=== PATIENT | male | born 1985 | race Two or more races ===

== ENCOUNTER 2020-06-26 06:57 | Emergency (ER) | payer SELFPAY ==
[~2020-06-26] VITALS: Ht 175.3 cm; Wt 104.3 kg
--- NOTE | 2020-06-26 07:02 | NUR ---
ED Nurse Note: Pt was brought in by ambulance from home d/t sore throat that has started x 1 hr ago. Pt is AOx4, calm and cooperative, pt denies having any chills, cough, weakness nor loss sense of taste or smell. Pt's VSS, on RA, afebrile on triage.
[2020-06-26 07:07] VITALS: BP 134/76
--- NOTE | 2020-06-26 07:10 | NUR ---
ED Nurse Note: Pt denies difficulty of breathing but complains of difficulty swallowing. ERMD at bedside.
[2020-06-26] MEDS ORDERED: Lidocaine 2% Visc 15ml soln ORAL ONE (07:15)
--- NOTE | 2020-06-26 07:18 | Emergency Room Report ---
History of Present Illness General Chief Complaint: Sore Throat Source: Patient, EMS Present Illness HPI Patient woke up with a sore throat. He feels some swelling. This caused him to gag this morning. He vomited with this. He called paramedics because he feels that there is swelling. It is painful to swallow. He denies any fevers or chills. There is no other upper respiratory symptomatology. Patient denies being in contact with other COVID-19 patients or people with upper respiratory symptoms. He was drinking beer last night. He occasionally smokes. The patient denies any allergies. There is no itching, wheezing, shortness of breath or skin rash. He points mid neck to where the pain is when he swallows. He has never had this problem before. He rates the pain 8/10. Is worse when he tries to swallow. It is burning and somewhat sharp. 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 Patient History Past Medical History: see triage record Social History: Reports: smoking, alcohol use Social History Narrative not working Reviewed Nursing Documentation: PMH: Agreed; PSxH: Agreed Nursing Documentation-PMH Past Medical History: No Stated History Hx Cardiac Problems: No Hx Hypertension: No Hx Pacemaker: No Hx Asthma: No Hx COPD: No Hx Diabetes: No Hx Cancer: No Hx Gastrointestinal Problems: No Hx Dialysis: No History Of Psychiatric Problem: No Hx Neurological Problems: No Hx Cerebrovascular Accident: No Hx Seizures: No Review of Systems Constitutional: Reports: see HPI ENT: Reports: see HPI Respiratory: Reports: see HPI Cardiovascular: Denies: chest pain Gastrointestinal: Reports: see HPI Genitourinary: Denies: dysuria Musculoskeletal: Denies: joint pain, muscle pain Skin: Denies: rash Neurological: Denies: headache Hematologic/Lymphatic: Denies: swollen glands Allergic: Reports: see HPI Physical Exam Vital Signs Date Time Temp Pulse Resp B/P (MAP) Pulse Ox O2 Delivery O2 Flow Rate FiO2 06/26/20 06:57 97.2 98 18 134/76 (95) 97 Room Air Sp02 EP Interpretation: reviewed, normal General Appearance: well appearing, no apparent distress, GCS 15 Head: normocephalic Eyes: bilateral eye normal inspection, bilateral eye PERRL ENT: no angioedema, normal voice, uvula midline, moist mucus membranes, pharyngeal erythema, other - No stridor Neck: full range of motion, supple, other - No stridor Respiratory: lungs clear, normal breath sounds Cardiovascular #1: regular rate, rhythm Cardiovascular #2: 2+ radial (L) Gastrointestinal: normal inspection Musculoskeletal: gait/station normal Neurologic: alert, oriented x3, grossly normal Psychiatric: mood/affect normal - Slightly anxious Skin: no rash, warm/dry Medical Decision Making Diagnostic Impression: Primary Impression: Pharyngitis Qualified Codes: J02.9 - Acute pharyngitis, unspecified ER Course Patient presents with swelling in his throat and pain with swallowing. Differential includes uvulitis, pharyngitis, pharyngeal abscess, tonsillitis, epiglottitis amongst others. Exam is negative for exudates. The pain is lower than where the uvula is. Viscous lidocaine will be given. AP lateral soft tissue neck ordered. The airway is not compromised at this time. Lack of fever and anterior adenopathy is against strep or bacterial infection. Somewhat improved after viscous lidocaine. Xrays without STS or abnormalities. Patient states pain is still present but improved. Tolerating oral intake. Discussed findings with patient and outpatient outpatient observation. Discussed low threshold for continued or increased pain or increased difficulty swallowing or breathing. No evidence of anaphylaxis or angioedema. Patient stable for outpatient observation and treatment. Other X-Ray Diagnostic Results Other X-Ray Diagnostic Results : # of Views/Limited Vs Complete: 2 View Indication: Other EP Interpretation: Yes Interpretation: no dislocation, no soft tissue swelling, no fractures, other - No soft tissue swelling and airway normal Impression: No acute disease Electronically Signed by: Electronically signed by Javon Dhillon MD Last Vital Signs Date Time Temp Pulse Resp B/P (MAP) Pulse Ox O2 Delivery O2 Flow Rate FiO2 06/26/20 08:28 97.2 74 17 136/78 98 Room Air Status: improved Disposition: HOME, SELF-CARE Condition: Improved Scripts Lidocaine HCl 2% Viscous (Lidocaine HCl 2% Viscous) 100 Ml Solution 10 ML ORAL QID PRN for throat pain, #120 ML 1 Refill mix with water, gargle and swallow Prov: Javon Dhillon MD 06/26/20 Acetaminophen (Tylenol) 325 Mg Tablet 650 MG ORAL Q6H PRN for Prn Pain/Headache/Temp > 101, #20 TAB 0 Refills Prov: Javon Dhillon MD 06/26/20 Javon Dhillon MD Jun 26, 2020 07:18
--- NOTE | 2020-06-26 08:02 | NUR ---
ED Nurse Note: Pt returned from x-ray
--- NOTE | 2020-06-26 08:08 | Diagnostic Imaging Report ---
EXAM: XR Soft Tissue Neck CLINICAL HISTORY: MASS TECHNIQUE: Frontal and lateral views of the soft tissues of the neck. COMPARISON: No relevant prior studies available. FINDINGS: Airway: Unremarkable. No abnormal narrowing. Bones/joints: Unremarkable. Soft tissues: Unremarkable. No abnormal soft tissue prominence. Normal epiglottis. IMPRESSION: Normal neck x-rays. CT of the neck may be useful for further evaluation
[2020-06-26] MEDS ORDERED: LIDOCAINE VISC100 ML ORAL (08:23)
[2020-06-26] MEDS ORDERED: TYLENOL325 MG ORAL (08:23)
[2020-06-26 08:28] VITALS: BP 136/78
--- NOTE | 2020-06-26 08:28 | NUR ---
ER DISCHARGE NOTE: Patient is cleared to be discharged per ERMD, pt is aox4, on room air, with stable vital signs. pt was given dc and prescription instructions, pt was able to verbalize understanding, pt id band removed. pt is able to ambulate with steady gait. pt took all belongings.
== END 2020-06-26 08:28 | disposition home or self-care (01) ==
LOC: EDBD 06:57 → EMR 07:20
DX: J02.9 Acute pharyngitis, unspecified (principal); F17.200 Nicotine dependence, unspecified, uncomplicated
CPT/HCPCS: 70360; 99283

== ENCOUNTER 2020-07-30 14:19 | Emergency (ER) | payer SELFPAY ==
[~2020-07-30] VITALS: Ht 175.3 cm; Wt 104.3 kg
[~2020-07-30 14:19] MED LIST: LIDOCAINE VISC100 ML ORAL; TYLENOL325 MG ORAL
[2020-07-30 14:39] VITALS: BP 120/73
--- NOTE | 2020-07-30 14:43 | Emergency Room Report ---
History of Present Illness General Chief Complaint: Earache Present Illness HPI 35 YO male presents to the ED c/o 06/07 in severity left ear pain with assoc. WARE x 3 days. He reports feeling sharp pain in his ear. He attempted to use q-tips but they provided no relief. Pt. denies significant PMhx. Pt. denies fevers. He reports chills. He Denies external ear tenderness. He denies d/c from the ear. He denies loss of hearing or ringing in the ears. He denies visual changes. He denies photophobia, neck pain or stiffness. 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 COVID-19 Screening: Negative COVID-19 COVID-19 Testing Source: unk Patient History Past Medical History: see triage record Past Surgical History: none Pertinent Family History: none Reviewed Nursing Documentation: PMH: Agreed; PSxH: Agreed Nursing Documentation-PMH Hx Cardiac Problems: No Hx Hypertension: No Hx Pacemaker: No Hx Asthma: No Hx COPD: No Hx Diabetes: No Hx Cancer: No Hx Gastrointestinal Problems: No Hx Dialysis: No Hx Neurological Problems: No Hx Cerebrovascular Accident: No Hx Seizures: No Review of Systems All Other Systems: negative except mentioned in HPI Physical Exam Vital Signs Date Time Temp Pulse Resp B/P (MAP) Pulse Ox O2 Delivery O2 Flow Rate FiO2 07/30/20 14:32 98.2 78 20 114/78 (90) 98 Room Air Sp02 EP Interpretation: reviewed, normal General Appearance: no apparent distress, alert, GCS 15, non-toxic Head: normocephalic, atraumatic Eyes: bilateral eye normal inspection, bilateral eye PERRL ENT: hearing grossly normal, normal voice, uvula midline, moist mucus membranes, other - There is some excessive cerumen pushed up against the TM of the left ear. The TM is erytehmatous. There is no external TTp no tragal ttp. NO visible d/c or macerated appearnce. NO obvious TM perf. no evidence of mastoiditis. Neck: full range of motion, no meningismus, no bony tend Respiratory: lungs clear, normal breath sounds, speaking full sentences Cardiovascular #1: regular rate, rhythm Musculoskeletal: normal range of motion, gait/station normal, non-tender Neurologic: alert, motor strength/tone normal, oriented x3, sensory intact, responsive, speech normal Psychiatric: judgement/insight normal Skin: no rash, normal color Lymphatic: no adenopathy Medical Decision Making PA Attestation Dr. Celaya is my supervising Physician whom patient management has been discussed with. Diagnostic Impression: Primary Impression: Otitis media Qualified Codes: H66.90 - Otitis media, unspecified, unspecified ear Additional Impression: Cerumen debris on tympanic membrane of left ear ER Course 35 YO male presents to the ED c/o 06/07 in severity left ear pain with assoc. WARE x 3 days. He reports feeling sharp pain in his ear. He attempted to use q-tips but they provided no relief. Pt. denies significant PMhx. Pt. denies fevers. He reports chills. He Denies external ear tenderness. He denies d/c from the ear. He denies loss of hearing or ringing in the ears. He denies visual changes. He denies photophobia, neck pain or stiffness. Ddx considered but are not limited to OM, OE, mastoiditis, TM perforation, FB Vital signs: are WNL, pt. is afebrile H&PE are most consistent with otitis media ORDERS: none required at this time, the diagnosis is clinical ED INTERVENTIONS: None required at this time. DISCHARGE: At this time pt. is stable for d/c to home. With PO ABX and debrox Will provide printed patient care instructions, and any necessary prescriptions. Care plan and follow up instructions have been discussed with the patient prior to discharge. Last Vital Signs Date Time Temp Pulse Resp B/P (MAP) Pulse Ox O2 Delivery O2 Flow Rate FiO2 07/30/20 14:39 98.0 76 18 120/73 99 Room Air Disposition: HOME, SELF-CARE Condition: Stable Referrals: [facility] Patient Instructions: Otitis Media, Adult, [id number] Additional Instructions: ~ ~ An emergent medical condition has not been identified based on this patients presentation, exam and any necessary testing/imaging. The patient is determined to be stable for outpatient follow-up and management of symptoms by a primary care provider. Take medications as directed. * Discontinue use of Q-Tips ! Follow up with a Primary Care Provider in 3-5 days, even if your symptoms have resolved. ENT SPECIALIST EVAL needed if symptoms do not improve --Please review list of primary care clinics, if you do not already have a primary care provider Return sooner to ED if new symptoms occur, or current symptoms become worse. - Please note that this Emergency Department Report was dictated using [employer] technology software, occasionally this can lead to er roneous entry secondary to interpretation by the dictation equipment. Melba Farias Jul 30, 2020 14:43
[2020-07-30] MEDS ORDERED: DEBROX15 M1 LEFT EAR (15:20)
[2020-07-30] MEDS ORDERED: AUGMENTIN 875-1 EAC1 ORAL (15:20)
[2020-07-30 15:26] VITALS: BP 133/80
== END 2020-07-30 15:26 | disposition home or self-care (01) ==
LOC: EMR 14:50
DX: H61.22 Impacted cerumen, left ear (principal); H66.90 Otitis media, unspecified, unspecified ear; R51.9 Headache, unspecified
CPT/HCPCS: 99281

== ENCOUNTER 2020-08-19 19:00 | Emergency (ER) | payer SELFPAY ==
[~2020-08-19] VITALS: Ht 182.9 cm; Wt 104.3 kg
[~2020-08-19 19:00] MED LIST changes: +AUGMENTIN 875-1 EAC1 ORAL; +DEBROX15 M1 LEFT EAR
[2020-08-19 19:20] VITALS: BP 116/59
[2020-08-19 19:50] LABS: BASOPHILS % (AUTO) 0.6 % (0.0-2.0); EOSINOPHILS % (AUTO) 4.8 % (0.0-3.0); HEMATOCRIT 40.6 % (42.0-52.0); HEMOGLOBIN 12.8 G/DL (14.2-18.0); LYMPHOCYTES % (AUTO) 29.2 % (20.0-45.0); MEAN CORPUSCULAR VOLUME 81 FL (80-99); MONOCYTES % (AUTO) 6.4 % (1.0-10.0); PLATELET COUNT 341 K/UL (150-450); RED BLOOD COUNT 4.99 M/UL (4.70-6.10); RED CELL DISTRIBUTION WIDTH 14.3 % (11.6-14.8); WHITE BLOOD COUNT 9.1 K/UL (4.8-10.8)
[2020-08-19 19:59] LABS: APPEARANCE,URINE CLOUDY; BILIRUBIN, URINE NEGATIVE (NEGATIVE); COLOR,URINE PALE YELLOW; GLUCOSE, URINE (UA) NEGATIVE (NEGATIVE); KETONES,URINE NEGATIVE (NEGATIVE); LEUKOCYTE ESTERASE ,URINE NEGATIVE (NEGATIVE); NITRITE,URINE NEGATIVE (NEGATIVE); PH,URINE 7 (4.5-8.0); PROTEIN,URINE NEGATIVE (NEGATIVE); UROBILINOGEN,URINE NORMAL MG/DL (0.0-1.0)
[2020-08-19 20:05] LABS: ANION GAP 7 mmol/L (5-15); BLOOD UREA NITROGEN 10 mg/dL (7-18); CALCIUM 9.1 MG/DL (8.5-10.1); CARBON DIOXIDE 28 MMOL/L (21-32); CHLORIDE 104 MMOL/L (98-107); CREATININE 1.1 MG/DL (0.55-1.30); POTASSIUM 3.7 MMOL/L (3.5-5.1); SODIUM 139 MMOL/L (136-145)
[2020-08-19 20:16] LABS: ALANINE AMINOTRANSFERASE 46 U/L (12-78); ALBUMIN 3.7 G/DL (3.4-5.0); ALBUMIN/GLOBULIN RATIO 1.3 (1.0-2.7); ALKALINE PHOSPHATASE 87 U/L (46-116); ASPARTATE AMINO TRANSFERASE 35 U/L (15-37); BILIRUBIN,TOTAL 0.1 MG/DL (0.2-1.0)
--- NOTE | 2020-08-19 20:26 | Emergency Room Report ---
History of Present Illness General Chief Complaint: Chest Pain Source: Patient Present Illness HPI 35-year-old male with no significant past medical history here complaining of over 1 month of chest pain that happens at rest and shortness of breath. Denies any cough and congestion, headache and dizziness. Denies any fever and chills. Denies any pain radiation. Denies any nausea vomiting diarrhea. Denies any tobacco smoke, drug use, alcohol intake. Denies any history of anxiety. Also reports of 2 days of sore throat which reports that it is mostly burning sensation that comes and goes. No white patches noted. Denies any earache and congestion. Is requesting antibiotics. Is neurovascularly intact. Speaking in full sentences and no unilateral generalized weakness noted. Reports that about a month ago symptoms and received antibiotics and felt better. A month ago patient came here Allergies: Coded Allergies: No Known Allergies (Unverified , 06/26/20) COVID-19 Screening Contact w/high risk pt: No Experienced COVID-19 symptoms?: No COVID-19 Testing performed COLLATOR: No Patient History Past Medical History: see triage record Past Surgical History: none Pertinent Family History: none Immunizations: UTD Reviewed Nursing Documentation: PMH: Agreed; PSxH: Agreed Nursing Documentation-PMH Past Medical History: No Stated History Hx Cardiac Problems: No Hx Hypertension: No Hx Pacemaker: No Hx Asthma: No Hx COPD: No Hx Diabetes: No Hx Cancer: No Hx Gastrointestinal Problems: No Hx Dialysis: No History Of Psychiatric Problem: No Hx Neurological Problems: No Hx Cerebrovascular Accident: No Hx Seizures: No Review of Systems All Other Systems: negative except mentioned in HPI Physical Exam Vital Signs Date Time Temp Pulse Resp B/P (MAP) Pulse Ox O2 Delivery O2 Flow Rate FiO2 08/19/20 19:05 98.4 78 18 141/89 (106) 97 Room Air Sp02 EP Interpretation: reviewed, normal General Appearance: no apparent distress, alert, GCS 15, non-toxic Head: normocephalic, atraumatic Eyes: bilateral eye normal inspection, bilateral eye PERRL ENT: hearing grossly normal, no angioedema, normal voice, pharyngeal erythema Neck: full range of motion, supple/symm/no masses Respiratory: chest non-tender, lungs clear, normal breath sounds, speaking full sentences Cardiovascular #1: regular rate, rhythm, no edema Cardiovascular #2: 2+ carotid (R), 2+ carotid (L), 2+ radial (R), 2+ radial (L), 2+ dorsalis pedis (R), 2+ dorsalis pedis (L) Gastrointestinal: non tender, soft Rectal: deferred Genitourinary: no CVA tenderness Musculoskeletal: back normal, no calf tenderness Neurologic: alert, motor strength/tone normal, oriented x3, sensory intact, responsive, speech normal Psychiatric: judgement/insight normal, memory normal, mood/affect normal, no suicidal/homicidal ideation Skin: no rash Lymphatic: no adenopathy Medical Decision Making PA Attestation All my diagnosis and treatment plans were reviewed ad discussed with my supervising physician Dr. Null Diagnostic Impression: Primary Impression: Chest pain Additional Impression: Pharyngitis ER Course 35-year-old male with no significant past medical history here complaining of over 1 month of chest pain that happens at rest and shortness of breath. Denies any cough and congestion, headache and dizziness. Denies any fever and chills. Denies any pain radiation. Denies any nausea vomiting diarrhea. Denies any to bacco smoke, drug use, alcohol intake. Denies any history of anxiety. Also reports of 2 days of sore throat which reports that it is mostly burning sensation that comes and goes. No white patches noted. Denies any earache and congestion. Is requesting antibiotics. Is neurovascularly intact. Speaking in full sentences and no unilateral generalized weakness noted. Reports that about a month ago symptoms and received antibiotics and felt better. A month ago patient came here Ddx considered but are not limited to: [place], Angina, COPD, GERD, pharyngitis, coronavirus Vital signs: are WNL, pt. is afebrile H&PE are most consistent with pharyngitis, unspecified chest pain ORDERS: Chest pain order set, Augmentin, Motrin, lidocaine viscous ED INTERVENTIONS: None required at this time. Patient was evaluated in the context of the global COVID-19 pandemic, which necessitated consideration that the patient might be at risk for infection with the SARS-COV-2 virus that causes COVID-19. Institutional protocols and algorithms that pertain to the evaluation of patients at risk for COVID-19 are in a state of rapid change based on information relieved by multiple regulatory bodies including the CDC and the federal and state organizations. These policies and algorithms were followed during the patient's care in the ED. DISCHARGE: At this time pt. is stable for d/c to home. Will provide printed patient care instructions, and any necessary prescriptions. Care plan and follow up instructions have been discussed with the patient prior to discharge. Patient take medication as directed, follow primary care provider, if worsening symptoms return to the emergency room. Also may need a referral to assistant cross country coach. EKG Diagnostic Results Rate: normal Rhythm: NSR ST Segments: no acute changes Other Impression No acute ST changes ASA given to the pt in ED: No Chest X-Ray Diagnostic Results Chest X-Ray Diagnostic Results : Chest X-Ray Ordered: Yes # of Views/Limited/Complete: 1 View Indication: Chest Pain EP Interpretation: Yes PA Xray: Interpretation reviewed, by supervising MD, and agrees with findings. Interpretation: no consolidation, no effusion, no pneumothorax Impression: No acute disease Electronically Signed by: Erich Navas PA-C Last Vital Signs Date Time Temp Pulse Resp B/P (MAP) Pulse Ox O2 Delivery O2 Flow Rate FiO2 08/19/20 19:20 98.4 83 18 116/59 97 Room Air Disposition: HOME, SELF-CARE Condition: Stable Patient Instructions: Nonspecific Chest Pain, Pharyngitis, [id number], Heartburn Additional Instructions: Patient take medication as directed, follow primary care provider, if worsening symptoms return to the emergency room. Also may need a referral to assistant cross country coach. Erich Caro Aug 19, 2020 20:26
[2020-08-19] MEDS ORDERED: AUGMENTIN 875-1 EAC1 ORAL (20:28)
[2020-08-19] MEDS ORDERED: FAMOTIDINE20 MG ORAL (20:28)
[2020-08-19] MEDS ORDERED: LIDOCAINE20 MG/1 M1 MM (20:28)
[2020-08-19] MEDS ORDERED: IBUPROFEN600 M1 ORAL (20:28)
[2020-08-19 20:36] VITALS: BP 135/65
--- NOTE | 2020-08-20 14:57 | Diagnostic Imaging Report ---
Procedure: XRAY Chest 1v Reason for study: Chest pain. Comparison films: None. FINDINGS: A single one view chest is obtained. Vascularity is normal. The lung ellis are clear bilaterally. Cardiac and mediastinal silhouette are within normal limits. CP angles are sharp. The bony thorax appear unremarkable. IMPRESSION: NO ACUTE CARDIOPULMONARY DISEASE.
== END 2020-08-19 20:45 | disposition home or self-care (01) ==
LOC: EMR 20:40
DX: R07.9 Chest pain, unspecified (principal); J02.9 Acute pharyngitis, unspecified
CPT/HCPCS: 36415; 71045; 80053; 80307; 81003; 84484; 85025; 93005; 99283

== ENCOUNTER 2020-08-22 20:33 | Emergency (ER) | payer SELFPAY ==
[~2020-08-22] VITALS: Ht 177.8 cm; Wt 90.7 kg
[~2020-08-22 20:33] MED LIST changes: +FAMOTIDINE20 MG ORAL; +IBUPROFEN600 M1 ORAL; +LIDOCAINE20 MG/1 M1 MM
[2020-08-22 20:50] VITALS: BP 148/93
--- NOTE | 2020-08-22 20:50 | NUR ---
ED Nurse Note: Patient brought into ED by [facility]uced[facility] for c/o substance abuse. Patient was at home and called 911 due to having palpitations and a headache after ingesting an unknown amount of cocaine. He states he has been feeling depressed lately, but states he did not take the cocaine to hurt himself. [employer] is bedside and is placing a patient on 5150 psych hold for danger to self due to ingesting the cocaine and being depressed. Patient does not have a plan to hurt himself. Patient is calm and cooperative with RN. He is aaox4, breathing is normal and unlabored. Patient placed in bed 7, all safety measures in place and sitter is bedside monitoring patient.
--- NOTE | 2020-08-22 20:51 | Emergency Room Report ---
History of Present Illness General Chief Complaint: Behavioral Complaint Source: Patient, EMS (Javon Dhillon MD) Present Illness HPI Patient brought by EMS. Patient complains of suicidal ideation. He does not tell me of a plan. He has been doing cocaine earlier for the last 3 days. He denies doing other drugs. The patient states he feels unsafe staying by himself. He is accompanied by [employer] also. He feels anxious. He has not eaten well and has not slept well. He is complaining of a headache that is throbbing and 3/10 on the pain scale. This is nonradiating. Patient had problems with depression when he was 18 years old. He has not taken any antidepressants or psychiatric medication since that time. The patient denies somatic complaints. He denies exposure to Covid positive contacts. No fevers, chills, sore throat, chest pain, palpitations, nausea, vomiting, diarrhea, dysuria, abdominal pain, shortness of breath, joint pain, rashes, visual changes, dizziness. (Javon Dhillon MD) Allergies: Coded Allergies: No Known Allergies (Unverified , 06/26/20) COVID-19 Screening Contact w/high risk pt: No Experienced COVID-19 symptoms?: No COVID-19 Testing performed CONSERVATION SPECIALIST: No (Javon Dhillon MD) Patient History Past Medical History: see triage record Social History: Reports: smoking, drug use Social History Narrative From home Reviewed Nursing Documentation: PMH: Agreed; PSxH: Agreed (Javon Dhillon MD) Nursing Documentation-PMH Hx Cardiac Problems: No Hx Hypertension: No Hx Pacemaker: No Hx Asthma: No Hx COPD: No Hx Diabetes: No Hx Cancer: No Hx Gastrointestinal Problems: No Hx Dialysis: No Hx Neurological Problems: No Hx Cerebrovascular Accident: No Hx Seizures: No (Javon Dhillon MD) Review of Systems All Other Systems: negative except mentioned in HPI (Javon Dhillon MD) Physical Exam Vital Signs Date Time Temp Pulse Resp B/P (MAP) Pulse Ox O2 Delivery O2 Flow Rate FiO2 08/22/20 20:35 98.8 92 18 148/93 (111) 100 Room Air Sp02 EP Interpretation: reviewed, normal General Appearance: well appearing, no apparent distress, GCS 15 Head: normocephalic Eyes: bilateral eye PERRL, bilateral eye EOMI, bilateral eye Scleral Injection ENT: moist mucus membranes Neck: supple Respiratory: lungs clear, normal breath sounds Cardiovascular #1: regular rate, rhythm Cardiovascular #2: 2+ radial (R) Gastrointestinal: normal inspection, normal bowel sounds, non tender, no mass, non-distended Musculoskeletal: back normal, normal range of motion, gait/station normal Neurologic: alert, oriented x3, grossly normal Psychiatric: depressed affect Suicide Risk Assessment: Suicidal Ideation: Yes Had intent to initiate attempt: No Pt's plan for suicide attempt: No Has means to complete attempt: Yes Skin: no rash, warm/dry (Javon Dhillon MD) Medical Decision Making Diagnostic Impression: Primary Impression: Suicidal ideation Additional Impression: Cocaine abuse ER Course Patient with suicidal ideation. Differential includes exacerbation of depression, effect of cocaine abuse, electrolyte imbalance, cardiac anomaly amongst others. Patient evaluated EKG, chest x-ray and labs. IV hydration begun. A sitter ordered. Police have placed the patient on a 5150. EKG normal sinus rhythm Normal EKG. labs only remarkable for urine tox screen positive for amphetamines and cocaine. Medically clear for psychiatric evaluation at 2215 Patient c/o headache and anxiety. Motrin and Ativan given. Sign out to Dr. Villarreal. Laboratory Tests Test 08/22/20 20:50 08/22/20 21:12 White Blood Count 10.7 K/UL (4.8-10.8) Red Blood Count 5.02 M/UL (4.70-6.10) Hemoglobin 13.0 G/DL (14.2-18.0) L Hematocrit 40.9 % (42.0-52.0) L Mean Corpuscular Volume 81 FL (80-99) Mean Corpuscular Hemoglobin 25.9 PG (27.0-31.0) L Mean Corpuscular Hemoglobin Concent 31.8 G/DL (32.0-36.0) L Red Cell Distribution Width 15.0 % (11.6-14.8) H Platelet Count 312 K/UL (150-450) Mean Platelet Volume 8.1 FL (6.5-10.1) Neutrophils (%) (Auto) 59.6 % (45.0-75.0) Lymphocytes (%) (Auto) 27.1 % (20.0-45.0) Monocytes (%) (Auto) 8.0 % (1.0-10.0) Eosinophils (%) (Auto) 4.2 % (0.0-3.0) H Basophils (%) (Auto) 1.2 % (0.0-2.0) Sodium Level 137 MMOL/L (136-145) Potassium Level 3.4 MMOL/L (3.5-5.1) L Chloride Level 103 MMOL/L (98-107) Carbon Dioxide Level 24 MMOL/L (21-32) Anion Gap 10 mmol/L (5-15) Blood Urea Nitrogen 11 mg/dL (7-18) Creatinine 1.2 MG/DL (0.55-1.30) Estimated Glomerular Filtration Rate > 60 mL/min (>60) Glucose Level 97 MG/DL (74-106) Calcium Level 8.4 MG/DL (8.5-10.1) L Total Bilirubin 0.2 MG/DL (0.2-1.0) Aspartate Amino Transferase (AST) 28 U/L (15-37) Alanine Aminotransferase (ALT) 52 U/L (12-78) Alkaline Phosphatase 68 U/L (46-116) Total Creatine Kinase 110 U/L (26-308) Troponin I 0.000 ng/mL (0.000-0.056) Total Protein 7.0 G/DL (6.4-8.2) Albumin 3.5 G/DL (3.4-5.0) Globulin 3.5 g/dL Albumin/Globulin Ratio 1.0 (1.0-2.7) Salicylates Level 1.1 ug/mL (2.8-20) L Acetaminophen Level < 2 MCG/ML (10-30) L Serum Alcohol 28 mg/dL Urine Color Pale yellow Urine Appearance Clear Urine pH 6 (4.5-8.0) Urine Specific [place] 1.010 (1.005-1.035) Urine Protein Negative (NEGATIVE) Urine Glucose (UA) Negative (NEGATIVE) Urine Ketones Negative (NEGATIVE) Urine Blood Negative (NEGATIVE) Urine Nitrite Negative (NEGATIVE) Urine Bilirubin Negative (NEGATIVE) Urine Urobilinogen Normal MG/DL (0.0-1.0) Urine Leukocyte Esterase Negative (NEGATIVE) Urine Opiates Screen Negative (NEGATIVE) Urine Barbiturates Screen Negative (NEGATIVE) Phencyclidine (PCP) Screen Negative (NEGATIVE) Urine Amphetamines Screen Positive (NEGATIVE) H Urine Benzodiazepines Screen Negative (NEGATIVE) Urine Cocaine Screen Positive (NEGATIVE) H Urine Marijuana (THC) Screen Negative (NEGATIVE) Microbiology Date/Time Source Procedure Growth Status 08/22/20 20:50 Nasopharynx SARS-CoV-2 RdRp Gene Assay - Final Complete (Javon Dhillon MD) ER Course I assumed care of this patient from the previous physician. Patient remained hemodynamically stable and neurovascularly intact in the emergency department. He is clinically sober at this time. Patient was evaluated by psychiatrist Dr. Garcia who deemed the patient appropriate for discharge. Patient is denying any homicidal or suicidal ideation or hallucinations at this time. He will seek help with a counselor through his primary care physician. Discharged in stable condition. (Ricardo French M.D.) EKG Diagnostic Results Troponin ordered: Yes Rate: normal Rhythm: NSR ST Segments: no acute changes (Javon Dhillon MD) Rhythm Strip Diag. Results EP Interpretation: yes Rhythm: NSR, no PVC's, no ectopy (Javon Dhillon MD) Chest X-Ray Diagnostic Results Chest X-Ray Diagnostic Results : Chest X-Ray Ordered: Yes (Javon Dhillon MD) Last Vital Signs Date Time Temp Pulse Resp B/P (MAP) Pulse Ox O2 Delivery O2 Flow Rate FiO2 08/23/20 00:30 98.8 88 18 141/85 100 Room Air Status: improved (Javon Dhillon MD) Referrals: NOT CHOSEN IPA/,REFERRING (PCP) Javon Dhillon MD Aug 22, 2020 20:51 Ricardo French M.D. Aug 23, 2020 14:27
--- NOTE | 2020-08-22 21:20 | NUR ---
ED Nurse Note: Patient belongings taken and pt placed in psych gown. Patient belongings are locked in psych locker #2.
[2020-08-22 21:36] LABS: APPEARANCE,URINE CLEAR; BILIRUBIN, URINE NEGATIVE (NEGATIVE); COLOR,URINE PALE YELLOW; GLUCOSE, URINE (UA) NEGATIVE (NEGATIVE); KETONES,URINE NEGATIVE (NEGATIVE); LEUKOCYTE ESTERASE ,URINE NEGATIVE (NEGATIVE); NITRITE,URINE NEGATIVE (NEGATIVE); PH,URINE 6 (4.5-8.0); PROTEIN,URINE NEGATIVE (NEGATIVE); UROBILINOGEN,URINE NORMAL MG/DL (0.0-1.0)
[2020-08-22 21:38] LABS: BASOPHILS % (AUTO) 1.2 % (0.0-2.0); EOSINOPHILS % (AUTO) 4.2 % (0.0-3.0); HEMATOCRIT 40.9 % (42.0-52.0); LYMPHOCYTES % (AUTO) 27.1 % (20.0-45.0); MEAN CORPUSCULAR VOLUME 81 FL (80-99); NEUTROPHILS % (AUTO) 59.6 % (45.0-75.0); PLATELET COUNT 312 K/UL (150-450); RED BLOOD COUNT 5.02 M/UL (4.70-6.10); WHITE BLOOD COUNT 10.7 K/UL (4.8-10.8)
[2020-08-22 21:49] LABS: ANION GAP 10 mmol/L (5-15); BLOOD UREA NITROGEN 11 mg/dL (7-18); CALCIUM 8.4 MG/DL (8.5-10.1); CARBON DIOXIDE 24 MMOL/L (21-32); CHLORIDE 103 MMOL/L (98-107); CREATININE 1.2 MG/DL (0.55-1.30); POTASSIUM 3.4 MMOL/L (3.5-5.1); SODIUM 137 MMOL/L (136-145)
[2020-08-22 21:53] LABS: ALANINE AMINOTRANSFERASE 52 U/L (12-78); ALBUMIN 3.5 G/DL (3.4-5.0); ALKALINE PHOSPHATASE 68 U/L (46-116); ASPARTATE AMINO TRANSFERASE 28 U/L (15-37); BILIRUBIN,TOTAL 0.2 MG/DL (0.2-1.0); CREATINE KINASE 110 U/L (26-308)
[2020-08-22] MEDS ORDERED: LORazepam 1mg tab ORAL ONE (23:30)
[2020-08-23] VITALS (7 sets, daily range): BP systolic 115–141; BP diastolic 74–88
--- NOTE | 2020-08-23 01:30 | NUR ---
ED Nurse Note: Patient is sleeping at this time. NAD noted. Sitter remains bedside monitoring patient.
--- NOTE | 2020-08-23 03:00 | NUR ---
ED Nurse Note: Patient remains sleeping at this time. He is breathing normal and unlabored. Sitter is bedside monitoring pt. Safety measures in place.
--- NOTE | 2020-08-23 05:45 | NUR ---
ED Nurse Note: Patient is awake and resting in bed, AAOX4. Vital signs are stable. He is in no acute distress. Pt is calm and cooperative. Sitter is bedside. Will cont. to monitor.
--- NOTE | 2020-08-23 07:00 | NUR ---
HAND-OFF: Report given to BENITEZ Barrios. Patient breakfast tray provided.
--- NOTE | 2020-08-23 07:09 | NUR ---
ED Nurse Note: Received pt from BENITEZ Ross. Pt resting in gurney, a/ox4. breathing normal/even/unlabored. skin warm/dry. NAD noted. Denies SI/HI. Sitter at bedside. Safey precaution done and breakfast provided to pt. Awaiting for Psych eval.
--- NOTE | 2020-08-23 08:21 | NUR ---
ED Nurse Note: DR. LATHAM CONTACTED FOR PSYCH CONSULT
--- NOTE | 2020-08-23 12:05 | NUR ---
ED Nurse Note: Lunch tray provided.
--- NOTE | 2020-08-23 13:10 | NUR ---
ED Nurse Note: Pt resting in gurney, with eyes closed. Breathing normal/even/unlabored. Skin warm/dry. Sitter at bedside. Denies SI/HI. NAD noted. Awaiting for psych eval.
--- NOTE | 2020-08-23 14:20 | NUR ---
ED Nurse Note: Dr. Garcia at bedside, assessing pt.
--- NOTE | 2020-08-23 14:23 | NUR ---
ED Nurse Note: DR. LATHAM AT THE BEDSIDE ASSESSING AND EVALUATING THE PATIENT
--- NOTE | 2020-08-23 14:44 | NUR ---
ED Nurse Note: Pt cleared by health care Provider and dr. Garcia for discharge. DC instructions/prescription was given and explained to pt and verbalized understanding of teachings. All medical deviecs such as ID band and IV removed. Pt is AAO x4, ambulatory and left with all personal belongings. Denies SI/HI.
--- NOTE | 2020-08-23 20:00 | Consultation ---
DATE OF CONSULTATION: 08/23/2020 HISTORY OF PRESENT ILLNESS: This is a 35-year-old male with a history of anxiety disorder and substance use disorder, who has been admitted to the hospital on a 5150 after he called 911 and stated that he feels sick. He stated that he was having chest tightness, palpitations, and "his migraine was throbbing." The patient denied any suicidal or homicidal ideation. The patient stated that he abused cocaine for the past several days. However, his system is positive for methamphetamines and cocaine. He had no knowledge of using crystal meth and he denies crystal meth. He does not endorse any depressive, manic, or psychotic symptoms. He denies any suicidal ideation. PAST PSYCHIATRIC HISTORY: He has a history of suicide attempt 10 years ago and he was once hospitalized. He is currently not on any psychotropic medication. PAST MEDICAL HISTORY: He denies any medical issues. ALLERGIES: No known drug allergies. SUBSTANCE ABUSE HISTORY: He has been using off and on cocaine. Denied any meth use using marijuana. MENTAL STATUS EXAMINATION: The patient is alert, oriented to time, self, place, situation, and date. Mood is neutral. Affect is full range, congruent with mood. Thought process is concrete. Thought content, no suicidal or homicidal ideation. Cognition is intact. Insight and judgment is fair. ASSESSMENT: [place] I Polysubstance dependence versus abuse. Anxiety disorder. [place] II Deferred. [place] III None. [place] IV Moderate. [place] V 50 PLAN: 1. The patient was recommended to go to treatment plan. 2. The patient lost job due to COVID. 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 Encouraged him to apply for another job. 3. Encouraged him to participate in treatment with psychiatrist. 4. We will discontinue the 5150 as he is not an imminent danger to self or others. Reshma Garcia M.D. DR: MARIA R JOB#: [id number] CC:
== END 2020-08-23 14:45 | disposition home or self-care (01) ==
LOC: EDUNIT# 20:33 → EDBD 20:33 → EMR 20:46
DX: R45.851 Suicidal ideations (principal); F14.10 Cocaine abuse, uncomplicated; R51.9 Headache, unspecified; F17.200 Nicotine dependence, unspecified, uncomplicated; F41.9 Anxiety disorder, unspecified
CPT/HCPCS: 36415; 80053; 80307; 81003; 82550; 84484; 85025; 93005; 96360; 99285; G0480; J7030; U0002